=== PATIENT | male | born 1995 | race Caucasian/White ===

== ENCOUNTER 2021-04-03 21:17 | Emergency (ER) | payer OTHER ==
[~2021-04-03] VITALS: Ht 177.8 cm; Wt 113.4 kg
--- NOTE | 2021-04-03 21:52 | NUR ---
RPESENTED TO THE ER FOR C/O L SHOULDER PAIN ON MOVEMENT AND BUMP ON THE L CLAVICLE. PT DENIED ANY FALL OR TRAUMA, NO HEAVY LIFTING. PT WAS PLACED IN BED 3 ON MONITOR, VSS. WILL CONT TO MONITOR
--- NOTE | 2021-04-03 21:55 | NUR ---
RAD AT BED SIDE
--- NOTE | 2021-04-03 22:00 | NUR ---
PA at the bedside for eval.
[2021-04-03] MEDS ORDERED: IBUP-1955 PO (22:52)
--- NOTE | 2021-04-03 23:03 | NUR ---
Patient discharged to home in stable condition. Written and verbal after care instructions given. Patient verbalizes understanding of instruction.
[2021-04-03 23:12] VITALS: BP 138/85
== END 2021-04-03 23:03 | disposition home or self-care (01) ==
LOC: ER 21:21
DX: R59.1 Generalized enlarged lymph nodes (principal); Z98.890 Other specified postprocedural states
CPT/HCPCS: 73000-TC